=== PATIENT | female | born 1990 ===

== ENCOUNTER 2016-10-17 06:15 | Inpatient (IN) ==
[2016-10-17] MEDS ORDERED: MEPERIDINE 50 MG/1 ML VIAL IV PRN (06:37)
[2016-10-17] MEDS ORDERED: ONDANSETRON 4 MG/2 ML VIAL IV PRN (06:37)
[2016-10-17] MEDS ORDERED: LACTATED RINGERS 500 ML IV PRN (06:37)
[2016-10-17 06:58] LABS: Basophils % 0.2 % (0.0-0.8); Eosinophils # 0.1 10*3/uL (0.0-0.87); Eosinophils % 0.9 % (0.00-10.9); Hematocrit 34.9 VOL% (35.7-47.0); Hemoglobin 11.6 GM/DL (12.0-16.0); Immature Granulocytes % 0.4 %; Immature Granulocytes Absolute 0.04 #; Lymphocytes # 2.2 10*3/uL (1.4-4.0); Lymphocytes % 23.9 % (21.3-54.2); Mean Corpuscular HGB Conc 33.2 GM/DL (32-36); Mean Corpuscular Hemoglobin 27 PG (27-34); Mean Corpuscular Volume 81.2 FL (87-102); Mean Platelet Volume 12.5 FL (9.6-12.0); Monocytes # 0.5 10*3/uL (0.11-0.8); Neutrophils # 6.4 10*3/uL (1.4-7.4); Neutrophils % 69.6 % (38.7-73.9); Platelet Count 203 T/CUMM (130-400); Red Cell Distribution Width 13.8 % (9.3-17.3); White Blood Count 9.2 T/CUMM (4-12)
[2016-10-17] MEDS ORDERED: OXYTOCIN/LR 20 UNIT/1,000 ML BAG IV SCH (07:00)
[2016-10-17] MEDS: LACTATED RINGERS 1,000 ML IV SCH ×2 (07:09→16:01)
[2016-10-17 07:32] LABS: Albumin 2.5 G/DL (3.4-5.0); Bilirubin,Total 0.4 MG/DL (0.2-1.0); Calcium 8.8 MG/DL (8.5-10.1); Osmolality,Calculated 273.5 MOS/KG (273-304); Potassium 3.9 MMOL/L (3.5-5.1); Total Protein 6.5 G/DL (6.4-8.3)
[2016-10-17] MEDS ORDERED: fentaNYL 2 MCG/ROPIV 0.2% EPID 150 ML EPIDURAL SCH (08:18)
[2016-10-17] MEDS ORDERED: hydrOXYzine HCL 25 MG/1 ML VIAL IM PRN (08:18)
[2016-10-17] MEDS ORDERED: PROMETHAZINE 25 MG/1 ML VIAL IM ONE (08:18)
[2016-10-17] MEDS ORDERED: ePHEDrine 50 MG/ML AMP IV PRN (08:18)
[2016-10-17] MEDS ORDERED: diphenhydrAMINE 50 MG/1 ML VIAL IV PRN (08:18)
[2016-10-17] MEDS ORDERED: LACTATED RINGERS 1,000 ML IV PRN (08:20)
[2016-10-17] MEDS ORDERED: LIDOCAINE 1% 50 ML VIAL ONE (08:29)
[2016-10-17] MEDS ORDERED: miSOPROStol 200 MCG TABLET ONE (08:29)
[2016-10-17] MEDS ORDERED: LACTATED RINGERS 1,000 ML IV SCH (08:30)
[2016-10-17] MEDS: CLINDAMYCIN INJ 900 MG in PREMIX 1 EACH IV SCH ×2 (08:33→17:03)
[2016-10-17] MEDS ORDERED: FAMOTIDINE 20 MG/2 ML VIAL IV ONE (09:00)
[2016-10-17] MEDS ORDERED: CITRIC ACID/SODIUM CITRATE 30 ML UDCUP PO ONE (09:00)
--- NOTE | 2016-10-17 09:42 | OB/GYN History & Physical ---
History of Present Illness Chief complaint: In for elective induction of labor. History of present illness: Ms. Schneider is a 26 year old female who is a 5 para 4 living for. Her JOSSELYN is 10/20/2016 for an estimated gestational age of 39 weeks and 4 days. The patient presents for elective induction of labor due to term . The risk and benefits of been thoroughly discussed with this patient and significant other, plan of care has been discussed with Dr. Dominguez and all parties are in agreement plan. The patient received her care through the [facility] in the [facility], she received routine care throughout and her course was uneventful other than the fact that the patient in a care late. The patient has had 4 previous vaginal deliveries and she reported no complications with any of these pregnancies. labs : The patient is O+ and she is also GBS positive. The patient was received IV antibiotics prophylactically for positive GBS status Home Medications Medication Instructions Recorded Confirmed Type Multivitamin () [ 1 tablet PO DAILY 11/17/14 10/12/16 History Vitamin] Acetamin/Codeine 300-30 Tab 2 tablet PO Q6H #30 tablet 11/19/14 10/12/16 Rx [Tylenol/Codeine #3] Ferrous Sulfate Tab [Feosol 325 mg PO BID #60 tablet 11/19/14 10/12/16 Rx Original Tab] Ibuprofen Tab [Motrin Tab] 800 mg PO Q8H PRN #30 tablet 11/19/14 10/12/16 Rx Acetamin/Codeine 300-30 Tab 2 tablet PO Q4H PRN #30 tablet 11/27/15 10/12/16 Rx [Tylenol/Codeine #3] Ferrous Sulfate Tab [Feosol 325 mg PO BID #60 tablet 11/27/15 10/12/16 Rx Original Tab] Ibuprofen Tab [Motrin Tab] 800 mg PO Q6H PRN #30 tablet 11/27/15 10/12/16 Rx Allergies Allergy/AdvReac Type Severity Reaction Status Date / Time Penicillins Allergy Intermediate RASH Verified 10/12/16 13:33 12 point system: reviewed and no additional remarkable complaints except as stated Medical,Surgical,& Family Hx - Medical History HEENT: No history of: Ear Problem, Eye Problem, Dental Problems, Glaucoma, Oral Cancer, HEENT Problems Endocrine: History of: Thyroid Disorder (pt is been worked up for possible thyroid thru [facility]) No history of: Diabetes Mellitus (IDDM) Musculoskeletal: No history of: Amputation Hematology: No history of: Anemia, Blood Transfusion Reaction, Bleeding Problems, Clotting Problems, Sickle Cell Disease, Hematologic Cancer, Blood Disorders Reproductive: No history of: Ectopic , Complication Other: No history of: Anesthesia Reactions, Cancer, Eczema, HIV - Surgical History Surgical History: noncontributory Cardiac Surgeries: Patient Denies: Cardiac Catheterization Thoracic Surgeries: Patient denies;: Organ Transplant, Lobectomy Neurologic Surgeries: Patient denies: Neurologic Surgery HEENT Surgeries: Patient denies: Eye Surgery, Tonsilectomy & Adenoidectomy Reproductive Surgeries: Patient denies;: Section, Genitourinary Surgery, Gynecologic Surgery - Family History Family History: Reports;: Family Diabetes ([id number]), Family Hypertension (both parents) Denies;: Family Anesthesia Reaction, Family Cancer, Family Heart Disease, Family Hematology, Family Psychiatric Problems, Family Stroke - Social History Smoking Status: Former smoker Have you smoked in the last 12 months: Yes Frequency of Alcohol Use: None Type of Drug Use: None Marital Status: Single Lives With:: Significant Other Functional capacity: independent ambulation 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 - Constitutional Vitals: Vital Signs Temp Pulse Resp BP Pulse Ox 10/17/16 06:37 97.6 F 74 20 133/72 100 General appearance: no acute distress - Antepartum / Post Antepartum Exam Cervix - Dilatation: 5 cm Effacement: 70% Station: -2 Rupture: Intact Presentation: Vertex Heart Rate: 140 [place]: Irregular uterine contractions Vagina: Present: normal moisture, discharge Cervix: Present: normal Uterus exam: Present: enlarged Anus/Rectum: Present: normal perianal skin - Respiratory Respiratory exam: Present: clear to auscultation bilaterally - Cardiovascular Cardiovascular exam: Present: regular rate and rhythm - GI/Abdominal GI/Abdominal exam: Present: normal bowel sounds, soft - Extremities Exam Extremities exam: Present: normal inspection - Neurological Exam Neurological exam: Present: alert, oriented X3 - Psychiatric Psychiatric exam: Present: normal affect, normal mood - Skin Skin exam: Present: normal color, warm Assessment and Plan (1) Term Status: Acute Assessment and plan: Admit IV fluids IV Pitocin per protocol Artificial rupture membranes when appropriate Internal monitors if indicated IV antibiotics prophylactically Anticipate Current Visit: Yes Results - Labs CBC & BMP: 10/17/16 06:46 10/17/16 06:46
--- NOTE | 2016-10-17 13:22 | Event Note ---
HPI: Ms. Schneider is a 26-year-old who presents to the labor department for elective induction of labor due to term . The risk and benefits were thoroughly discussed with the patient and significant other, plan of care was discussed with Dr. Dominguez and all parties are in agreement with plan. Stage I: The patient was admitted she received IV fluids and IV Pitocin per protocol. Artificial rupture membranes was performed with clear fluid noted. The patient was given IV antibiotics prophylactically for positive GBS culture. She progressed in labor with a CAT 1 tracing. The patient had an uneventful course of labor. Stage II: The patient was complete and complained of pressure and desire to push. She pushed approximately 1 time at which time the infant's head was delivered. The mouth and nose suctioned on the perineum. The remainder the was delivered at 1308 a viable female infant was noted. Apgars were 9 at 1 minute and 9 at 5 minutes. weight was 8 lbs. 1 oz. A cord pH was obtained and sent to the lab. The baby was placed on the mom's abdomen for skin to skin bonding. Stage III: A spontaneous delivery of a Olsen placenta with a three-vessel cord noted. The placenta was further examined appeared to be grossly intact. The vagina cervix was inspected with no tears or lacerations noted. Estimated blood loss was approximately 100 cc. At the time of dictation mother and baby are both in stable condition.
[2016-10-17] MEDS ORDERED: LANOLIN 50% CREAM 0.3 OZ TUBE TOP PRN (13:23)
[2016-10-17] MEDS ORDERED: RHO(D) IMMUNE GLOBULIN 300 MCG SYRINGE IM ONE (13:23)
[2016-10-17] MEDS ORDERED: HYDROCORTISONE 2.5% RECTAL CREAM 30 GM TUBE TOP PRN (13:23)
[2016-10-17] MEDS ORDERED: MEASLES/MUMPS/RUBELLA VACCINE 0.5 ML VIAL SUBCUT ONE (13:23)
[2016-10-17] MEDS ORDERED: BENZOCAINE 20%/MENTHOL 0.5% SPRAY 56 GM CAN TOP PRN (13:23)
[2016-10-17] MEDS ORDERED: DIPH/TET/ACEL PERT BOOSTER VACCINE 0.5 ML VIAL IM ONE (13:23)
[2016-10-17] MEDS ORDERED: OXYTOCIN/LR 20 UNIT/1,000 ML BAG IV ONE (13:23)
[2016-10-17] MEDS ORDERED: oxyCODONE/ACETAMINOPHEN 5-325 MG TABLET PO PRN (13:23)
[2016-10-17] MEDS ORDERED: ACETAMINOPHEN 325 MG TABLET PO PRN (13:23)
[2016-10-17] MEDS ORDERED: WITCH HAZEL PADS 100/JAR TOP PRN (13:23)
[2016-10-17] MEDS ORDERED: BISACODYL 10 MG SUPP RECTAL PRN (13:23)
[2016-10-17] MEDS ORDERED: ACETAMINOPHEN/CODEINE 300-30 MG TABLET PO PRN (13:24)
[2016-10-17 13:45] LABS: Apearance,Urine CLEAR (Clear); Bilirubin,Urine Negative (Negative); Blood, Urine Negative (Negative); Glucose,Urine (UA) Negative (Negative); Ketones,Urine Negative (Negative); Mucus,Urine Occasional /LPF (Occasional); Nitrite,Urine Negative (Negative); Protein,Urine Negative; RBC,Urine 1 /HPF (0-4); Urine Color Straw (Yellow); Urine Specific Gravity 1.006 (1.001-1.035); Urine Urobilinogen < 2.0 EU/DL (0.2-1.0); WBC,Urine <1 /HPF (0-6)
--- NOTE | 2016-10-17 15:28 | Anesthesia Post-Op ---
Anesthesia Post OP - Post Ansesthetic Evaluation Patient seen in post op: Yes Resp: within normal limits CV: within normal limits Mental: within normal limits Temp: within normal limits [id number]: within normal limits Nausea and Vomiting: within normal limits Pain: within normal limits
[2016-10-17] MEDS: oxyCODONE/ACETAMINOPHEN 5-325 MG TABLET PO PRN (18:15)
[2016-10-17] MEDS: IBUPROFEN 800 MG TABLET PO PRN (19:10)
[2016-10-17] MEDS: DOCUSATE SODIUM 100 MG CAPSULE PO SCH (21:05)
[2016-10-18] MEDS: IBUPROFEN 800 MG TABLET PO PRN ×2 (05:41→14:25)
[2016-10-18 06:20] LABS: Basophils % 0.2 % (0.0-0.8); Eosinophils # 0.1 10*3/uL (0.0-0.87); Eosinophils % 1.2 % (0.00-10.9); Hematocrit 30.3 VOL% (35.7-47.0); Immature Granulocytes % 0.5 %; Immature Granulocytes Absolute 0.05 #; Lymphocytes # 2.5 10*3/uL (1.4-4.0); Lymphocytes % 26.7 % (21.3-54.2); Mean Corpuscular Hemoglobin 27 PG (27-34); Mean Corpuscular Volume 81.5 FL (87-102); Monocytes # 0.6 10*3/uL (0.11-0.8); Monocytes % 6.4 % (1.7-12.7); Platelet Count 159 T/CUMM (130-400); Red Blood Count 3.72 MC/CUMM (3.8-5.5); White Blood Count 9.3 T/CUMM (4-12)
[2016-10-18] MEDS: DOCUSATE SODIUM 100 MG CAPSULE PO SCH ×2 (08:51→21:12)
[2016-10-18] MEDS: oxyCODONE/ACETAMINOPHEN 5-325 MG TABLET PO PRN ×2 (08:51→17:57)
--- NOTE | 2016-10-18 09:41 | OB/GYN Progress Note ---
Assessment and Plan (1) Term Status: Acute Assessment and plan: Admit IV fluids IV Pitocin per protocol Artificial rupture membranes when appropriate Internal monitors if indicated IV antibiotics prophylactically Anticipate Current Visit: Yes (2) Vaginal delivery Status: Acute Assessment and plan: Initiate routine orders. 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 Bonding well with infant. Exam POLE CLIMBER - Constitutional Vitals: Vital Signs Temp Pulse Resp BP Pulse Ox 10/18/16 07:28 97.1 F L 56 L 18 112/63 98 10/18/16 04:00 97.4 F L 62 16 98/59 98 10/18/16 00:00 97.6 F 60 16 97/52 98 10/17/16 19:29 97.6 F 60 18 135/70 98 10/17/16 18:40 97.6 F 62 18 140/73 98 General appearance: no acute distress - Antepartum / Post Post Exam Breast: bilateral: normal Abdomen obstetrics: Present: bowel sounds normal Vagina: Present: normal moisture, discharge (Light lochia rubra) Uterus exam: Present: enlarged (Fundus firm and midline) Anus/Rectum: Present: normal perianal skin - Head Head exam: Present: normal inspection - Respiratory Respiratory exam: Present: clear to auscultation bilaterally - Cardiovascular Cardiovascular exam: Present: regular rate and rhythm - GI/Abdominal GI/Abdominal exam: Present: normal bowel sounds, soft - Extremities Exam Extremities exam: Present: normal inspection - Neurological Exam Neurological exam: Present: alert, oriented X3 - Psychiatric Psychiatric exam: Present: normal affect, normal mood - Skin Skin exam: Present: normal color, warm Results - Labs CBC & BMP: 10/18/16 05:48 10/17/16 06:46
[2016-10-19] MEDS: IBUPROFEN 800 MG TABLET PO PRN ×2 (00:25→08:00)
[2016-10-19] MEDS: oxyCODONE/ACETAMINOPHEN 5-325 MG TABLET PO PRN ×2 (00:26→08:01)
[2016-10-19 07:27] VITALS: BP 110/60
[2016-10-19] MEDS: DOCUSATE SODIUM 100 MG CAPSULE PO SCH (07:59)
--- NOTE | 2016-10-19 09:14 | Discharge Summary ---
Hospital Course - Hospital Course Hospital Course: Ms. Schneider is a 26-year-old female who presented to the labor department for elective induction of labor due to term . The patient subsequently delivered a viable with no complications. He is followed a normal course and she has done well. Her bleeding is minimal with no odor. Her fundus is firm and midline. Her vital signs and lab values are stable. She is bonding well with her . She denies any pain in her legs. Her bowel sounds are positive she has had a normal bowel movement. She will be discharged home with prescriptions for pain and a follow-up appointment in our office. Diagnosis - Discharge Diagnosis (1) Term Status: Acute (2) Vaginal delivery Status: Acute Specialty Discharge - Follow Up or Referrals Follow up with: Kathy Dominguez MD [Physician] - 1 Month Discharge Plan - Discharge Data Disposition: Disch To Home/Self Care Condition at Discharge: Stable Discharge Diet: advance to your usual diet, regular diet Activity: resume usual activities as tolerated Hygiene: no restrictions Weight Bearing at Discharge: weight bear as tolerated Driving: no restrictions Contact your physician if you experience:: fever over 101, pain uncontrolled by pain medications - Discharge Medications New Acetamin/Codeine 300-30 Tab [Tylenol/Codeine #3] 2 tablet PO Q4H PRN #30 tablet PRN Reason: Pain Mild (1-3) Ibuprofen Tab [Motrin Tab] 800 mg PO Q6H PRN #30 tablet PRN Reason: Pain Moderate (4-7) Continue Ferrous Sulfate Tab [Feosol Original Tab] 325 mg PO BID #60 tablet No Action Multivitamin () [ Vitamin] 1 tablet PO DAILY Ibuprofen Tab [Motrin Tab] 800 mg PO Q8H PRN #30 tablet PRN Reason: Pain Moderate (4-7) Acetamin/Codeine 300-30 Tab [Tylenol/Codeine #3] 2 tablet PO Q6H #30 tablet Acetamin/Codeine 300-30 Tab [Tylenol/Codeine #3] 2 tablet PO Q4H PRN #30 tablet PRN Reason: Pain Mild (1-3) Ferrous Sulfate Tab [Feosol Original Tab] 325 mg PO BID #60 tablet Ibuprofen Tab [Motrin Tab] 800 mg PO Q6H PRN #30 tablet PRN Reason: Pain Moderate (4-7) - Follow Up or Referral - Forms/Instructions Exam - Constitutional Vitals: Period Temp Pulse Resp BP Sys/Price Pulse Ox Last 24 Hr 97.1 F-98.3 F 57-68 18-20 107-150/55-90 98-99 General appearance: no acute distress - Head Head exam: Present: normal inspection - ENT ENT exam: Present: normal exam - Respiratory Respiratory exam: Present: clear to auscultation bilaterally - Cardiovascular Cardiovascular exam: Present: regular rate and rhythm - GI/Abdominal GI/Abdominal exam: Present: normal bowel sounds, soft - Extremities Exam Extremities exam: Present: normal inspection - Back Exam Back exam: Present: normal inspection - Neurological Exam Neurological exam: Present: alert, oriented X3 - Psychiatric Psychiatric exam: Present: normal affect, normal mood - Skin Skin exam: Present: normal color, warm DS: Provider Date of admission: 10/17/16 06:15 Primary care physician: Black Caceres MD Attending physician on admission: Kathy Dominguez MD Consults: 10/17/16 06:37 Consult to Anesthesiology [CONS] Routine Consulting Provider: Reason for Anesthesiology: Epidural Consult Comment: Epidural for pain managment 10/17/16 13:23 Consult to Jd Edwards Consultant [CONS] Routine Consult Jd Edwards Consultant: Breast Feeding Discharging clinician: Xochitl Peng CNM Expected date of discharge: 10/19/16
== END 2016-10-19 13:30 | disposition home or self-care (01) | DRG 560 ==
LOC: N.LD 06:15 → N.OB 18:32
PROVIDERS: ADMIT Obstetrics & Gynecology; ATTEND Obstetrics & Gynecology